=== PATIENT | male | born 2000 | race Two or more races ===

== ENCOUNTER 2022-03-23 01:05 | Emergency (ER) | payer OTHER ==
[~2022-03-23] VITALS: Ht 175.3 cm; Wt 97.5 kg
== END 2022-03-23 03:22 | disposition home or self-care (01) ==
LOC: ER 01:05
DX: S61.221A Laceration with foreign body of left index finger without damage to nail, initial encounter (principal); W26.0XXA Contact with knife, initial encounter; Y93.9 Activity, unspecified; Y92.9 Unspecified place or not applicable

== ENCOUNTER 2022-04-10 17:00 | Emergency (ER) | payer OTHER ==
[~2022-04-10] VITALS: Ht 177.8 cm; Wt 100.7 kg
== END 2022-04-10 21:20 | disposition home or self-care (01) ==
LOC: ER 17:00
DX: R20.2 Paresthesia of skin (principal); Z20.822 Contact with and (suspected) exposure to COVID-19